=== PATIENT | male | born 1945 | race Hispanic/Latino ===

== ENCOUNTER 2018-02-02 04:43 | Emergency (ER) | payer MEDICARE, BC ==
[2018-02-02 04:43] VITALS: BMI 24.4
--- NOTE | 2018-02-02 05:01 | C.PDOC ---
History Of Present Illness 72 year old male is brought to the ED by EMS for evaluation s/p sustaining a fall. Patient reports he was walking at a store when he tripped and fell while using his cane. Patient fell on his buttocks and back. Patient remembers the events, is unsure why the ambulance brought him to the ED. Patient has a wound over his right foot for which he goes to [facility]. Patient states he wants to go home. Patient denies headache, visual changes, LOC, dizziness, CP, SOB, weakness, numbness, nausea, vomit. - HPI Time Seen by Provider: 02/02/18 05:01 Chief Complaint (Nursing): Trauma History Per: Patient, EMS History/Exam Limitations: no limitations Onset/Duration Of Symptoms: Hrs Injury Occurred (Timing): Just Before Arrival Recent travel outside of the [place]: No Additional History Per: Patient - Fall Fall:Prior To Injury: Tripped Past Medical History Reviewed: Historical Data, Nursing Documentation, Vital Signs Vital Signs: Last Vital Signs Temp 99.1 F 02/02/18 04:59 Pulse 90 02/02/18 04:50 Resp 16 02/02/18 04:50 BP 149/57 L 02/02/18 04:50 Pulse Ox 100 02/02/18 04:50 - Medical History PMH: Bipolar Disorder, Depression, Diabetes, Diverticulitis, HTN, Parkinson's Disease Surgical History: Cholecystectomy - [facility] Procedures ENDOSCOP INSERTION OF STENT (TUBE) INTO BILE DUCT (07/07/12) ENDOSCOPIC REMOVAL OF STONE(S) FROM BILIARY TRACT (07/07/12) ENDOSCOPIC SPHINCTEROTOMY AND PAPILLOTOMY (07/07/12) OCCUPATIONAL THERAPY (07/25/12) OTH CL [ENDO] BX OF NEETA DUCT OR SPHINCTER OF ODDI (07/07/12) PHYSICAL THERAPY NEC (07/25/12) Family History: States: Unknown Family Hx - Social History Hx Tobacco Use: No Hx Alcohol Use: No Hx Substance Use: No - Immunization History Hx Tetanus Toxoid Vaccination: No Hx Influenza Vaccination: No Hx Pneumococcal Vaccination: No Review Of Systems Constitutional: Negative for: Fever, Chills Eyes: Negative for: Vision Change Cardiovascular: Negative for: Chest Pain, Palpitations Respiratory: Negative for: Cough, Shortness of Breath Gastrointestinal: Negative for: Nausea, Vomiting, Abdominal Pain Skin: Negative for: Rash Neurological: Negative for: Weakness, Numbness, Headache, Dizziness Physical Exam - Physical Exam Appears: Non-toxic, No Acute Distress Skin: Warm, Dry Head: Normacephalic Eye(s): bilateral: Normal Inspection, PERRL, EOMI Neck: No Midline Cervical Tenderness, Supple Chest: Symmetrical Cardiovascular: Rhythm Regular Respiratory: No Rales, No Rhonchi, No Wheezing Gastrointestinal/Abdominal: Bowel Sounds (active), Soft, No Tenderness, No Guarding, No Rebound Back: No Vertebral Tenderness Extremity: Other (Right foot wound) Extremity: Bilateral: Atraumatic, Normal ROM, Other (chronic venous stasis skin changes. ) Pulses: Left Dorsalis Pedis: Normal, Right Dorsalis Pedis: Normal Neurological/Psych: Oriented x3, Normal Speech, Normal Cognition Gait: Steady ED Course And Treatment O2 Sat by Pulse Oximetry: 100 (ON RA) Pulse Ox Interpretation: Normal Reevaluation Time: 06:10 Reassessment Condition: Improved Disposition Counseled Patient/Family Regarding: Studies Performed, Diagnosis - Disposition Disposition: HOME/ ROUTINE Disposition Time: 05:01 Condition: FAIR Instructions: Preventing Falls in the Older Adult Forms: [employer] (Nepali) - Clinical Impression Clinical Impression: Fall - Scribe Statement The provider has reviewed the documentation as recorded by the Scribe Ken Manriquez All medical record entries made by the Scribe were at my direction and personall y dictated by me. I have reviewed the chart and agree that the record accurately reflects my personal performance of the history, physical exam, medical decision making, and the department course for this patient. I have also personally directed, reviewed, and agree with the discharge instructions and disposition.
[2018-02-02 05:03] VITALS: BP 149/57; PULSE 90; RESP 16; TEMP 99.1; O2SAT 100
== END 2018-02-02 06:54 | disposition home or self-care (01) ==
LOC: C.ER 04:43
DX: Z04.3 Encounter for examination and observation following other accident (principal); W01.0XXA Fall on same level from slipping, tripping and stumbling without subsequent striking against object, initial encounter; Y92.512 Supermarket, store or market as the place of occurrence of the external cause